=== PATIENT | female | born 1970 ===

== ENCOUNTER 2019-03-07 05:50 | Day surgery (SDC) | payer OTHER ==
[2019-03-07] MEDS ORDERED: Tylenol #3 PO (15:13)
[2019-03-07] MEDS ORDERED: MORGIDOX100 MG PO (15:13)
== END 2019-03-07 18:35 | disposition home or self-care (01) ==
LOC: CIR.AMB 05:50
DX: D25.0 Submucous leiomyoma of uterus (principal); N84.0 Polyp of corpus uteri